=== PATIENT | male | born 1995 | race Two or more races ===

== ENCOUNTER 2022-03-18 12:54 | Emergency (ER) | payer SELFPAY ==
[~2022-03-18] VITALS: Ht 172.7 cm; Wt 63.5 kg
--- NOTE | 2022-03-18 13:12 | NUR ---
TO ER BED 15, [id number] C/O FEELING TINGLY POST ECSTASY USE, WENT TO [facility] AND ASK TO CALL 911, AAOX3, BREATHING EVEN AND NON LABORED, SEEN BY
[2022-03-18] MEDS ORDERED: ONDANSETRON HCL/PF 4 MG/2 ML VIAL ONE (13:21)
[2022-03-18] MEDS ORDERED: IV NS 0.9% 1,000 ML IV ONE (13:30)
[2022-03-18] MEDS ORDERED: ONDANSETRON HCL/PF 4 MG/2 ML VIAL IV ONE (13:30)
[2022-03-18] MEDS ORDERED: ONDA4TAB5 PO (14:54)
--- NOTE | 2022-03-18 15:24 | NUR ---
SS Note: Pt. Is a 26-year-old White male who demonstrates adequate insight to the reason for hospitalization. Per EMR, pt. feeling tingly post ecstasy use. Pt. was oriented x4, alert, and cooperative. During interview, pt. was capable of following directions and appeared unkempt. Pt.'s speech was at a normal rate and pt.'s mood was elevated. Pt. reported no hx of mental health, denies suicidal ideation, or homicidal ideation. Pt. denies auditory hallucinations, visual hallucinations, paranoia, or delusions. Per pt., he uses marijuana daily, but it does not affect his daily life. Per labs, pt. was positive for marijuana and meth. Per pt., he thinks the meth was in the Ecstasy that he took. SW explored pt.'s living situation. Per pt., he currently resides at a friend's house and can go back upon discharge. Pt. is working on getting housing. Pt. is ambulatory and is independent with his ADL's. Plan: SW provided available resources and pt. denied. Upon discharge, per pt., he will return to his friend's house. Pt. signed homeless waiver and it's placed in chart. RUBINA provided pt. with a TAP card.
--- NOTE | 2022-03-18 15:35 | NUR ---
IV removed. Catheter intact and site benign. Pressure and 4x4 applied to site. No bleeding noted.Patient discharged to home in stable condition. Written and verbal after care instructions given. Patient verbalizes understanding of instruction.
[2022-03-18 16:12] VITALS: BP 136/82
== END 2022-03-18 16:12 | disposition home or self-care (01) ==
LOC: ER 13:03
DX: F15.129 Other stimulant abuse with intoxication, unspecified (principal); F19.10 Other psychoactive substance abuse, uncomplicated; F12.90 Cannabis use, unspecified, uncomplicated; R94.31 Abnormal electrocardiogram [ECG] [EKG]
CPT/HCPCS: 80307; 93005; 96361; 96374; 99284; J2405; J7030

== ENCOUNTER 2022-07-02 00:21 | Inpatient (IN) | payer MEDICAID, OTHER ==
[~2022-07-02] VITALS: Ht 175.3 cm; Wt 64.9 kg
[~2022-07-02 00:21] MED LIST: ONDA4TAB5 PO
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
[2022-07-02] MEDS ORDERED: VANCOMYCIN 1 GM VIAL ONE (01:16)
[2022-07-02] MEDS ORDERED: ONDANSETRON HCL/PF 4 MG/2 ML VIAL ONE (01:16)
[2022-07-02] MEDS ORDERED: MORPHINE SULFATE INJ 4 MG/ML DISP.SYRIN ONE (01:17)
[2022-07-02] MEDS ORDERED: VANCOMYCIN 1 GM in IV D5W 250 ML IV ONE (01:30)
[2022-07-02] MEDS ORDERED: IV NS 0.9% 500 ML BAG IV ONE (01:30)
[2022-07-02] MEDS ORDERED: ONDANSETRON HCL/PF 4 MG/2 ML VIAL IVP ONE (01:30)
[2022-07-02] MEDS ORDERED: MORPHINE SULFATE INJ 2 MG/ML DISP.SYRIN IV ONE (01:30)
--- NOTE | 2022-07-02 01:44 | NUR ---
LAC #18G S/L BLOOD AND COVID ANTIGEN SWAB COLLECTED AND SENT TO LAB
[2022-07-02 02:10] LABS: BASOPHILS % (AUTO) 0.2 % (0.0-2.0); HEMATOCRIT 33 % (39-51); HEMOGLOBIN 10.7 g/dL (13.5-17.5); LYMPHOCYTES # (AUTO) 2.1 K/uL (0.8-4.8); LYMPHOCYTES % (AUTO) 32.3 % (20.0-44.0); MEAN CORPUSCULAR HGB CONC 32 g/dl (31.0-36.0); MEAN CORPUSCULAR VOLUME 77 fL (80-96); MONOCYTES # (AUTO) 0.6 K/uL (0.1-1.30); MONOCYTES % (AUTO) 9.4 % (2.0-12.0); NEUTROPHILS # (AUTO) 3.4 K/uL (1.8-8.9); NEUTROPHILS % (AUTO) 53.1 % (43.0-81.0); PLATELET COUNT (AUTO) 273 K/uL (150-450); RED BLOOD CELL COUNT(AUTO) 4.31 MIL/uL (4.5-6.0); WHITE BLOOD COUNT (AUTO) 6.4 K/uL (4.3-11.0)
[2022-07-02 02:25] LABS: CALCIUM, SERUM 9.4 mg/dL (8.5-10.1); CREATININE 0.8 mg/dL (0.6-1.3); POTASSIUM 4.7 mmol/L (3.5-5.1)
[2022-07-02 02:32] LABS: ALBUMIN 3.4 g/dL (3.4-5.0); BILIRUBIN,DIRECT 0.1 mg/dL (0.0-0.2); BILIRUBIN,TOTAL 0.4 mg/dL (0.2-1.0); TOTAL PROTEIN, SERUM 7.5 g/dL (6.4-8.2)
--- NOTE | 2022-07-02 03:22 | NUR ---
PT TAKEN TO CT VIA TARA
[2022-07-02] MEDS ORDERED: ACETAMINOPHEN 325 MG TABLET PO PRN (05:00)
[2022-07-02] MEDS ORDERED: IV NS 0.9% 1,000 ML IV PRN (05:00)
[2022-07-02] MEDS ORDERED: ZOLPIDEM TARTRATE 5 MG TABLET PO PRN (05:00)
[2022-07-02] MEDS ORDERED: ONDANSETRON HCL/PF 4 MG/2 ML VIAL IVP PRN (05:00)
[2022-07-02] MEDS ORDERED: MAGNESIUM HYDROXIDE 30 ML UDC PO PRN (05:00)
[2022-07-02] MEDS ORDERED: MAG HYDROX/AL HYDROX/SIMETH 30 ML UDC PO PRN (05:00)
[2022-07-02] MEDS ORDERED: Z GUARD REMEDY 4 OZ OINT TP PRN (05:00)
[2022-07-02] MEDS ORDERED: HYDROCODONE/APAP 10/325MG TABLET PO PRN (05:00)
[2022-07-02 08:00] VITALS: BP 146/51
--- NOTE | 2022-07-02 08:47 | NUR ---
GAVE REPORT TO SCARLETT NASH FOR CT.
[2022-07-02 09:07] VITALS: BP 146/51
[2022-07-02] MEDS ORDERED: VANCOMYCIN 1 GM in IV D5W 250 ML IV SCH (10:00)
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
[2022-07-02] MEDS ORDERED: PIPERACILLIN /TAZOBACTAM 3.375 G in IV D5W 50 ML IV SCH (12:00)
--- NOTE | 2022-07-02 14:00 | NUR ---
MEDICAL SCRIBE NOTES PATIENT REQUESTED TO LEAVE HOSPITAL. RISKS AND BENEFITS EXPLAINED, MD NOTIFIED. PATIENT AFTER EXPLAINING RISKS AND BENEFITS STILL WISHED TO LEAVE. IV ACCESS REMOVED, PRESSURE DRESSING APPLIED. ID BAND REMOVED. PATIENT SIGNED AMA FORM AND FILED INTO CHART. PATIENT REFUSED ANY HEALTH TEACHINGS. PATIENT LEFT UNIT @3218 WITH ALL BELONGINGS. CHARGE NURSE AND MD AWARE.
== END 2022-07-02 13:45 | disposition left against medical advice (07) | DRG 383 ==
LOC: ER 00:27 → TRANSITION 05:49 → MED 08:33
PROVIDERS: ADMIT Nurse Practitioner Acute Care; ATTEND Nurse Practitioner Acute Care
DX: L03.213 Periorbital cellulitis (principal); J32.0 Chronic maxillary sinusitis; Z59.00 Homelessness unspecified; Y04.2XXA Assault by strike against or bumped into by another person, initial encounter; Y92.9 Unspecified place or not applicable; Z53.29 Procedure and treatment not carried out because of patient's decision for other reasons
CPT/HCPCS: 36415; 70481-TC; 80048-TC; 80076-TC; 83605-TC; 85025-TC; 85730-TC; 87040-TC; 87081-TC; C9803; G0378; J2270; J2405; J2543; J3370; J7030; J7040; J7060